=== PATIENT | male | born 1990 | race Caucasian/White ===

== ENCOUNTER 2019-03-13 18:56 | Emergency (ER) | payer OTHER ==
[~2019-03-13] VITALS: Ht 190.5 cm; Wt 139.0 kg
[~2019-03-13 18:56] MED LIST: AMOXICILLIN875 MG PO; AUGMENTIN875TAB PO
[2019-03-13] MEDS ORDERED: PEPCID20 MG PO (20:20)
[2019-03-13] MEDS ORDERED: PREDNISONE20 MG PO (20:20)
[2019-03-13] MEDS ORDERED: KEFLEX500 M1 PO (20:20)
[2019-03-13 20:22] VITALS: BP 140/81
== END 2019-03-13 20:22 | disposition home or self-care (01) | DRG 603 ==
LOC: ED 18:56
DX: L03.115 Cellulitis of right lower limb (principal); L23.7 Allergic contact dermatitis due to plants, except food